=== PATIENT | female | born 1965 | race African-American/Black ===

== ENCOUNTER 2021-07-08 | Outpatient (CLI) | payer MEDICARE | END 2021-07-08 11:15 | disposition home or self-care (01) ==

== ENCOUNTER 2021-08-12 14:52 | Outpatient (CLI) | payer MEDICARE ==
[2021-08-12 16:46] LABS: Anion Gap 16 mmol/L (10-20); BUN (Urea Nitrogen) 7 mg/dL (9.8-20.1); Calc. Creatinine Clearance 0 mL/min (70-130); Carbon Dioxide 22 mmol/L (22-29); Chloride 102 mmol/L (98-107); Glucose 96 mg/dL (70-105); Potassium 4.1 mmol/L (3.5-5.1); Sodium 136 mmol/L (136-145)
[2021-08-13 09:11] LABS: SARS-CoV-2 PCR by NAA Not Detected (NotDetected)
== END 2021-08-12 14:53 | disposition home or self-care (01) ==
LOC: LABBT 14:52
PROVIDERS: ATTEND Specialist
DX: Z01.818 Encounter for other preprocedural examination (principal); E66.01 Morbid (severe) obesity due to excess calories; Z20.822 Contact with and (suspected) exposure to COVID-19
CPT/HCPCS: 80048; U0003; U0005

== ENCOUNTER 2021-08-26 16:00 | Inpatient (IN) | payer MEDICARE ==
[2021-09-06 13:39] VITALS: BMI 37.8
[2021-09-07] MEDS ORDERED: Heparin 5,000 UNITS/ML VIAL ONE (05:50)
[2021-09-07] MEDS ORDERED: cefOXitin Sodium/Dextrose 2 GM/50 ML BAG ONE (05:50)
[2021-09-07] MEDS ORDERED: Ketorolac Tromethamine 30 MG/ML VIAL ONE (05:50)
[2021-09-07] MEDS ORDERED: Acetaminophen 500 MG TAB ONE (05:50)
[2021-09-07] MEDS ORDERED: Scopolamine 1.5 mg/72 hour Patch ONE (05:51)
[2021-09-07] MEDS ORDERED: Fentanyl 100 MCG/2 ML VIAL ONE ×2 (06:37→09:43)
[2021-09-07] MEDS ORDERED: HYDROmorphone 2 MG/ML VIAL ONE (06:37)
[2021-09-07] MEDS ORDERED: Midazolam HCl 2 mg/2 ml Vial ONE (06:37)
[2021-09-07] MEDS ORDERED: Lidocaine 1% w/Epinephrine 1:100K 20 ML VIAL ONE (06:57)
[2021-09-07] MEDS ORDERED: Bupivacaine 0.25% HCL 30 ML VIAL ONE (06:57)
[2021-09-07] MEDS ORDERED: Dexamethasone 20 MG/5 ML VIAL ONE (07:35)
[2021-09-07] MEDS ORDERED: PHENYLEPHRINE-NS 100 MCG/ML 10 ML SYRINGE ONE (07:35)
[2021-09-07] MEDS ORDERED: ePHEDrine 50 MG/ML VIAL ONE (07:35)
[2021-09-07] MEDS ORDERED: Lidocaine 1% PF 5 ML VIAL ONE (07:35)
[2021-09-07] MEDS ORDERED: Rocuronium Bromide 10 MG/ML (10ML VIAL) ONE (07:35)
[2021-09-07] MEDS ORDERED: Ondansetron PF 4 MG/2 ML Vial ONE ×2 (07:35→09:42)
[2021-09-07] MEDS ORDERED: PROPOFOL 200 MG/20 ML VIAL ONE (07:35)
[2021-09-07] MEDS ORDERED: Promethazine HCl 25 MG/ML VIAL IVPB PRN (09:34)
[2021-09-07] MEDS ORDERED: Promethazine HCl 25 MG/ML VIAL IM PRN ×2 (09:34→14:53)
[2021-09-07] MEDS ORDERED: Ondansetron HCl/PF 4 MG/2 ML Vial IVP PRN (09:34)
[2021-09-07] MEDS ORDERED: Dextrose 50% Abboject 50 ML SYRINGE SLOW IVP PRN ×2 (11:03→14:53)
[2021-09-07] MEDS ORDERED: Insulin Regular 300 UNITS/3 ML VIAL SC PRN (11:03)
[2021-09-07] MEDS ORDERED: Dextrose 5% in Water 1,000 ML IV PRN ×2 (11:03→14:53)
[2021-09-07] MEDS ORDERED: Lactated Ringer's 1,000 ML IV SCH (12:45)
[2021-09-07] MEDS ORDERED: Morphine 2 MG/ML VIAL SLOW IVP PRN (14:53)
[2021-09-07] MEDS ORDERED: Hydrocodone-Acetamin 15 ML UDCUP PO PRN (14:53)
[2021-09-07] MEDS ORDERED: diphenhydrAMINE 50 MG/ML VIAL IVP PRN (14:53)
[2021-09-07] MEDS ORDERED: hydrALAZINE 20 MG/ML VIAL SLOW IVP PRN (14:53)
[2021-09-07] MEDS ORDERED: Ondansetron PF 4 MG/2 ML Vial IVP PRN (14:53)
[2021-09-07] MEDS ORDERED: Morphine 4 MG/ML VIAL SLOW IVP PRN (14:53)
[2021-09-07] MEDS: D5 1/2 NS w/20 mEq KCL 1,000 ML IV SCH ×2 (18:05→21:04)
[2021-09-07] MEDS: Ketorolac Tromethamine 30 MG/ML VIAL IVP SCH (18:06)
[2021-09-07] MEDS ORDERED: Enoxaparin Sodium 40 MG/0.4 ML SYRINGE SC SCH (21:00)
[2021-09-08] MEDS: Ketorolac Tromethamine 30 MG/ML VIAL IVP SCH ×3 (01:07→06:10)
[2021-09-08 04:54] VITALS: TEMP 98.1
[2021-09-08 06:45] LABS: #Lymphocytes 1.6 thou/uL (1.20-3.40); #Monocytes 0.8 thou/uL (0.11-0.59); #Neutrophils 7.5 thou/uL (1.40-6.50); %Basophils 0.3 % (0.0-1.0); %Eosinophils 0.1 % (0.0-10.0); %Lymphocytes 15.7 % (21.0-51.0); %Monocytes 8.2 % (0.0-10.0); %Neutrophils 75.7 % (42.0-75.0); Hemoglobin 10.9 g/dL (12.0-16.0); Mean Corpuscular HGB CONC 34.1 g/dL (32.0-36.0); Mean Corpuscular Hemoglobin 33.9 pg (27.0-31.0); Mean Corpuscular Volume 99.4 fL (78.0-98.0); Mean Platelet Volume 6.6 fL (7.4-10.4); Platelet Count 272 thou/uL (130-400); RBC Distribution Width 13.1 % (11.5-14.5); Red Blood Cell (RBC) Count 3.22 mill/uL (4.20-5.40); White Blood Cell (WBC) Count 9.9 thou/uL (4.8-10.8)
[2021-09-08 07:03] LABS: Anion Gap 13 mmol/L (10-20); BUN (Urea Nitrogen) 9 mg/dL (9.8-20.1); Calc. Creatinine Clearance 146 mL/min (70-130); Calcium 8.3 mg/dL (7.8-10.44); Carbon Dioxide 24 mmol/L (22-29); Chloride 104 mmol/L (98-107); Glucose 188 mg/dL (70-105); Potassium 4.3 mmol/L (3.5-5.1); Sodium 137 mmol/L (136-145)
[2021-09-08 07:59] VITALS: BP 139/82
[2021-09-08] MEDS ORDERED: Pantoprazole 40 MG VIAL IVP SCH (09:00)
[2021-09-08] MEDS: D5 1/2 NS w/20 mEq KCL 1,000 ML IV SCH (09:59)
[2021-09-08] MEDS ORDERED: FLU VACC QS2021-22(6MOS UP)/PF 60 MCG/0.5 ML SYRINGE IM ONE (17:00)
== END 2021-09-08 11:35 | disposition home or self-care (01) | DRG 621 ==
LOC: SURG A 09-07 05:33 → EDSTATUS 09-07 13:00 → SJJU 09-07 13:50
PROVIDERS: ADMIT Specialist; ATTEND Specialist
PROC: 0DB64Z3 Excision of Stomach, Percutaneous Endoscopic Approach, Vertical (ICD-10-PCS; principal; 2021-09-07)
DX: E66.01 Morbid (severe) obesity due to excess calories (principal); Z68.37 Body mass index [BMI] 37.0-37.9, adult; E11.9 Type 2 diabetes mellitus without complications; I10 Essential (primary) hypertension; M19.90 Unspecified osteoarthritis, unspecified site; Z87.891 Personal history of nicotine dependence
CPT/HCPCS: 36415; 36416; 80048; 85025; 88307; C9113; J0694; J1100; J1170; J1644; J1650; J1815; J1885; J2250; J2405; J2704; J3010; J3480; J3490; S0020

== ENCOUNTER 2021-09-03 11:29 | Outpatient (CLI) | payer MEDICARE ==
[2021-09-04 01:38] LABS: SARS-CoV-2 PCR by NAA Not Detected (NotDetected)
== END 2021-09-03 11:30 | disposition home or self-care (01) ==
LOC: LABBT 11:29
PROVIDERS: ATTEND Specialist
DX: Z01.812 Encounter for preprocedural laboratory examination (principal); E66.01 Morbid (severe) obesity due to excess calories; Z20.822 Contact with and (suspected) exposure to COVID-19
CPT/HCPCS: 93005; U0003; U0005; 93010